=== PATIENT | male | born 1945 ===

== ENCOUNTER 2017-05-14 09:25 | Day surgery (SDC) | payer OTHER ==
[~2017-05-14] VITALS: Ht 167.6 cm; Wt 74.0 kg
[~2017-05-14 09:25] MED LIST: FISH OIL 1,0001 EAC1; Hair, Skin & N1 EACH; LISI20; METO25ER; NIAC250ER; Omeprazole20 M1; PRAV20; TAMS.4ER
== END 2017-05-14 11:17 | disposition home or self-care (01) ==
LOC: ORSCSDS 09:25
PROVIDERS: Ophthalmology
PROC: 08RJ3JZ Replacement of Right Lens with Synthetic Substitute, Percutaneous Approach (ICD-10-PCS; principal; 2017-05-14 10:30)
DX: H25.11 Age-related nuclear cataract, right eye (principal); I10 Essential (primary) hypertension; E78.5 Hyperlipidemia, unspecified; Z79.899 Other long term (current) drug therapy
CPT/HCPCS: J2250; J3010; J3301; J7040; V2632